=== PATIENT | female | born 1930 | race Caucasian/White ===

== ENCOUNTER 2018-06-14 14:15 | Emergency (ER) | payer MEDICARE ==
[~2018-06-14] VITALS: Ht 167.6 cm; Wt 71.7 kg
[~2018-06-14 14:15] MED LIST: AMLODIPINE BESYL5 MG PO; CENTRUM SILVER1 EAC1 PO; CO Q-10100 MG PO; COSAMIN ASU CA1 EACH PO; FOLIC ACID1 MG PO; HYDROCHLOROTHIA25 MG PO; KLOR-CON 88 MEQ PO; SYNTHROID75 MCG PO; WARFARIN SODIUM6 MG PO
[2018-06-14 15:06] LABS: BASOPHILS % 0.6 % (0.0-1.0); EOSINOPHILS # (AUTO) 0.2 (0.0-0.4); EOSINOPHILS % 3.2 % (0.0-6.0); HEMATOCRIT 40.7 % (34.2-44.1); HEMOGLOBIN 13.1 g/dL (12.0-16.0); LYMPHOCYTES # (AUTO) 1.2 (1.0-3.2); LYMPHOCYTES % 17.7 % (18.0-39.1); MEAN CORPUSCULAR HEMOGLOBIN 30.5 pg (28-32); MEAN CORPUSCULAR HGB CONC 32.2 g/dL (31-35); MEAN CORPUSCULAR VOLUME 94.7 fL (81-99); MONOCYTES # (AUTO) 0.8 (0.2-0.8); MONOCYTES % 11.8 % (4.4-11.3); NEUTROPHILS # (AUTO) 4.6 (2.1-6.9); NEUTROPHILS % 66.1 % (38.7-80.0); PLATELET COUNT 234 x10e3/uL (140-360); RED CELL DISTRIBUTION WIDTH 12.4 % (11.7-14.4)
[2018-06-14 15:20] LABS: ALANINE AMINOTRANSFERASE 14 IU/L (0-55); ALBUMIN 3.5 g/dL (3.5-5.0); ALBUMIN/GLOBULIN RATIO 0.9 (0.8-2.0); ALKALINE PHOSPHATASE 77 IU/L (40-150); ANION GAP 11.7 mmol/L (8-16); BLOOD UREA NITROGEN 18 mg/dL (7-26); BUN/CREATININE RATIO 21 (6-25); CALCIUM 9.3 mg/dL (8.4-10.2); CARBON DIOXIDE 31 mmol/L (22-29); CHLORIDE 96 mmol/L (98-107); CREATINE KINASE 33 IU/L (29-168); CREATININE, SERUM 0.87 mg/dL (0.57-1.11); EST GLOMERULAR FILTRATION RATE > 60 ML/MIN (60-); GLUCOSE 110 mg/dL (74-118); POTASSIUM 3.7 mmol/L (3.5-5.1); SODIUM 135 mmol/L (136-145)
[2018-06-14] MEDS ORDERED: ACETAMINOPHEN 325 MG TAB PO NR (15:30)
--- NOTE | 2018-06-14 15:52 | Diagnostic Imaging Report ---
EXAMINATION: CHEST 2 VIEWS INDICATION: Coughing. COMPARISON: None FINDINGS: TUBES and LINES: None. LUNGS: The lungs are hyperinflated. There are patchy opacities in the bilateral mid to lower lung zones. Subsegmental linear opacities, consistent with atelectasis in the lower lung zones. PLEURA: Small bilateral pleural effusions. No evidence of pneumothorax. HEART AND MEDIASTINUM: The cardiomediastinal silhouette is unremarkable. BONES AND SOFT TISSUES: No acute osseous lesion. Soft tissues are unremarkable. UPPER ABDOMEN: No free air under the diaphragm. IMPRESSION: Small bilateral pleural effusions with patchy opacities at the lung bases, which could reflect pneumonia in a patient with cough. Follow-up chest radiograph is suggested in 6-8 weeks to assess for resolution. Signed by: Dr. Ashish Cervantes MD on 06/14/2018 3:49 PM
--- NOTE | 2018-06-14 18:25 | NUR ---
PATIENT AND FAMILY REQUESTING TO LEAVE AGAINST MEDICAL ADVICE. EDUCATED PATIENT AND FAMILY ON THE RISKS OF AGAINST MEDICAL ADVICE AND THE BENEFITS OF STAYING TO RECEIVE CARE, VERBALIZED UNDERSTANDING. NOTIFIED DR TRAYLOR.
--- NOTE | 2018-06-14 18:34 | NUR ---
PATIENT SIGNED OUT AGAINST MEDICAL ADVICE.
== END 2018-06-14 18:35 | disposition left against medical advice (07) ==
LOC: ER 14:15
DX: R05 Cough (principal); R53.1 Weakness
CPT/HCPCS: 36415; 71046; 80053; 82550; 82553; 83605; 84484; 85025; 87040; 87400; 93005; 99284